=== PATIENT | female | born 1995 | race Caucasian/White ===

== ENCOUNTER 2019-04-19 11:30 | Emergency (ER) | payer OTHER, SELFPAY ==
[2019-04-19 11:54] VITALS: BP 112/72; PULSE 105; RESP 24; TEMP 38.2; O2SAT 100
--- NOTE | 2019-04-19 14:22 | ED.GENADULT ---
HPI - General Adult General Chief complaint: Upper Respiratory Infection Stated complaint: think i have inf a and strep Time Seen by Provider: 04/19/19 12:59 Source: patient Mode of arrival: ambulatory Limitations: no limitations History of Present Illness HPI narrative: Patient is a 23-year-old female who presents to emergency department for evaluation of upper respiratory symptoms that began this morning with congestion rhinorrhea subjective fever with chills and sweats and body aches patient notes 1 episode of emesis and is otherwise resting comfortably in the room upon arrival in no distress Related Data Allergies Allergy/AdvReac Type Severity Reaction Status Date / Time No Known Allergies Allergy Unverified 04/19/19 12:55 Review of Systems Review of Systems: All systems reviewed & are unremarkable except as noted in HPI and below PMFSH Family History Family History (Updated 10/28/13 @ 07:13 by DOCTOR UNKNOWN) Grandparent Family history of heart disease in male family member before age 55 Social History Social History Smoking status: Never smoker Alcohol intake: never Exam Narrative: Exam Narrative: GENERAL: Ill-appearing, well-nourished, and in no acute distress. HEAD: Normocephalic, atraumatic. EYES: PERRLA and EOMI. ENT: Nares clear, no rhinorrhea or epistaxis. Mucous membranes moist. Oropharynx with tonsillar hypertrophy and without exudate or other lesions. NECK: Supple. No adenopathy or masses. CHEST: Clear to auscultation. No respiratory distress. No wheezes rales or rhonchi HEART: Regular rate and rhythm. No murmur heard. EXTREMITIES: Normal range of motion. No edema. SKIN: Warm, dry, no rash. NEURO: No focal deficits. Alert and oriented x3. PSYCH: Normal mood and affect. Course Course Emergency Course: Patient in the room in no distress aware of case findings treatment plan and diagnosis agreeing to follow-up as directed or to return if symptoms worsen or concerns Vital Signs Vital signs: Vital Signs Temperature 100.7 F H 04/19/19 11:54 Pulse Rate 105 H 04/19/19 11:54 Respiratory Rate 24 H 04/19/19 11:54 Blood Pressure 112/72 04/19/19 11:54 Pulse Oximetry 100 04/19/19 11:54 Temperature 100.7 F H 04/19/19 11:54 Pulse Rate 105 H 04/19/19 11:54 Respiratory Rate 24 H 04/19/19 11:54 Blood Pressure 112/72 04/19/19 11:54 Pulse Oximetry 100 04/19/19 11:54 Medical Decision Making MDM Narrative Medical decision making narrative: Patient in the room in no distress aware of case findings treatment plan and diagnosis agreeing to follow-up as directed or to return if symptoms worsen or concerns Vital Signs Vital Signs: Vital Signs Temperature 100.7 F H 04/19/19 11:54 Pulse Rate 105 H 04/19/19 11:54 Respiratory Rate 24 H 04/19/19 11:54 Blood Pressure 112/72 04/19/19 11:54 Pulse Oximetry 100 04/19/19 11:54 Temperature 100.7 F H 04/19/19 11:54 Pulse Rate 105 H 04/19/19 11:54 Respiratory Rate 24 H 04/19/19 11:54 Blood Pressure 112/72 04/19/19 11:54 Pulse Oximetry 04/19/19 11:54 Lab Data Labs: Influenza A Screen Positive Reference Range: Negative Influenza B Screen Negative Reference Range: Negative Strep Screen Presumptive Negative *(Reference Range: Negative)* Discharge Plan Discharge Clinical Impression: Influenza Patient Disposition: Home, Self-Care Condition: Stable Instructions: Antibiotic Form, Influenza (ED) Additional Instructions: Follow up with your primary care provider within 5-7 days. Go to ER for shortness of breath, difficulty breathing, chest pain, fever/chills, weakness, nauseau/vomitting, etc. or any other concerns. Stay well-hydrated Take any prescribed medications as directed. Follow patient education sheets If you do not have a drug allergy to tylenol or motri
[2019-04-19] MEDS: ACETAMINOPHEN 500 MG TABLET 1000 MG PO (14:23)
[2019-04-19] MEDS: IBUPROFEN 600 MG TABLET PO (14:24)
[2019-04-19 14:53] VITALS: RESP 18
== END 2019-04-19 14:53 | disposition home or self-care (01) ==
PROVIDERS: Emergency Provider Family Medicine
DX: J10.1 Influenza due to other identified influenza virus with other respiratory manifestations (principal)
CPT/HCPCS: 87081; 87147; 87804; 87880; 99283; A9270

== ENCOUNTER 2019-11-11 20:14 | Observation (INO) | payer BC, SELFPAY ==
[2019-11-11 20:47] VITALS: BP 121/65; PULSE 83
[2019-11-11 20:59] LABS: Add Urine Microscopic? NO; Appearance Urine Clear (Clear); Bilirubin Urine Negative (Negative); Blood Urine Negative (Negative); Color Urine Colorless (Yellow); Glucose Urine UA Negative (Negative); Ketones Urine Negative (Negative); Leukocyte Esterase Ur Negative LEU/UL (NEGATIVE); Nitrate Urine Negative (Negative); Protein Urine Negative (Negative); Urobilinogen Urine Negative mg/dL (<2.0)
[2019-11-11 21:01] VITALS: BP 122/75; PULSE 77
[2019-11-11 21:05] LABS: Specific Grav Ur 1.004 (1.001-1.035)
[2019-11-11 22:35] VITALS: TEMP 36.4
[2019-11-11 22:52] VITALS: BMI 24.1
--- NOTE | 2019-11-11 22:53 | OBADM ---
This patient, Madison Armendariz, admitted to the OB room [facility] for observation. Patient/family oriented to hospital policies and general routines including ID bracelet, bed and alarms, visiting hours, pain management, procedures, bathroom and other care routines, personal items, smoking policy, room service/diet, and visiting hours. Patient/Family are encouraged to report perceived risks to care and to ask questions if they do not understand what they are told or what they should do.
--- NOTE | 2019-11-30 14:03 | PM.OBTRLD ---
OB - Triage/Final Diagnosis Evaluation Laboratory results: Laboratory Tests 11/11/19 20:46 Urine Color Colorless Urine Appearance Clear Urine pH 8.0 Ur Specific [place] 1.004 Urine Protein Negative Urine Glucose (UA) Negative Urine Ketones Negative Ur Blood (Man) Negative Urine Nitrate Negative Urine Bilirubin Negative Urine Urobilinogen Negative Ur Leukocyte Esterase Negative Final Diagnosis (1) contractions: Code(s): O47.9 - False labor, unspecified Status: Acute
== END 2019-11-11 23:17 | disposition home or self-care (01) ==
PROVIDERS: Admitting Provider Obstetrics & Gynecology; Visit Provider Obstetrics & Gynecology
DX: O60.02 Preterm labor without delivery, second trimester (principal); Z3A.26 26 weeks gestation of pregnancy
CPT/HCPCS: 81003; 87086; 87088; G0378; G0379